=== PATIENT | female | born 1930 | race Caucasian/White ===

== ENCOUNTER 2016-10-18 14:45 | Emergency (ER) | payer OTHER, MEDICARE ==
[~2016-10-18] VITALS: Ht 157.5 cm; Wt 64.1 kg
[~2016-10-18 14:45] MED LIST: ADULT LOW DOSE81 M1 PO; ADVAIR 250/501 DISK IH; AUGMENTIN875 MG PO; CEFTIN500 MG PO; COUMADIN4 MG PO; Coumadin,Jantoven PO; FEROSUL325 MG PO; FUROSEMIDE20 MG PO; HYDROCHLOROTHIA25 MG PO; ICAPS LUTEIN1 TABLET PO; INDOCIN50 MG PO; IRON160 M1 PO; K-DUR20 MEQ PO; KEFLEX500 MG PO; KLOR-CON M2020 MEQ PO; KLOR-CON20 MEQ PO; LOPRESSOR100 M1 PO; LOVENOX80 MG/0.8 SC; Lopressor PO; METOPROLOL TART50 MG PO; MULTIVITAMIN1 EAC1 PO; PREDNISONE20 MG PO; TEMAZEPAM30 MG PO; TYLENOL WITH C1 EACH PO; VITAMIN C500 M2 PO; WARFARIN SODIU2.5 MG PO; WARFARIN SODIUM1 MG PO; WARFARIN SODIUM3 MG PO; ZESTRIL,PRINIVI10 M1 PO; ZESTRIL10 MG PO
[2016-10-18 16:54] LABS: HEMATOCRIT 37.5 % (36.0-46.0); MCHC 32.3 G/DL (30.0-36.0); MCV 92.8 FL (83-99); MEAN PLAT.VOLUME 8.7 uM^3 (9.5-12.4); PLATELET COUNT 302 K/uL (156-360); RBC DIS.WIDTH-CV 14.3 % (11.8-14.6); RBC DIS.WIDTH-SD 47.1 % (39-53); RED BLOOD COUNT 4.04 M/uL (3.80-5.20); WHITE BLOOD COUNT 6.6 K/uL (4.1-10.2)
[2016-10-18 17:03] LABS: INTER. NORMALIZED RATIO 3.9; PROTHROMBIN TIME 41.4 (9.2-11.2)
[2016-10-18 17:07] LABS: CHLORIDE 105 mEq/L (99-109); SODIUM 141 mEq/L (136-147)
[2016-10-18 17:10] LABS: GLUCOSE 103 mg/dL (70-99)
[2016-10-18 17:11] LABS: ANION GAP 9 MEQ/L (2-14)
[2016-10-18 17:12] LABS: TOTAL BILIRUBIN 0.4 mg/dL (0.0-1.0)
[2016-10-18 17:13] LABS: ALKALINE PHOSPHATASE 84 IU/L (3-129); GFR ESTIMATE (CALCULATED) > 59 mL/min/
[2016-10-18 17:14] LABS: UREA NITROGEN (BUN) 21 mg/dL (9-23)
[2016-10-18] MEDS ORDERED: TRAMADOL HCL50 MG PO (18:29)
[2016-10-18 19:07] VITALS: BP 176/91
== END 2016-10-18 19:06 | disposition home or self-care (01) ==
LOC: EME 14:45
PROVIDERS: Nurse Practitioner Family
DX: M79.605 Pain in left leg (principal); M25.462 Effusion, left knee; Z91.81 History of falling; Z79.01 Long term (current) use of anticoagulants; I10 Essential (primary) hypertension
CPT/HCPCS: 80053; 85027; 85610; 93971; 99281; 99285